=== PATIENT | male | born 1965 | race Two or more races ===

== ENCOUNTER 2018-11-19 16:44 | Emergency (ER) | payer SELFPAY ==
[~2018-11-19] VITALS: Ht 162.6 cm; Wt 81.6 kg
[2018-11-19 17:19] LABS: BILIRUBIN,URINE NEGATIVE (NEG); CLARITY,URINE CLEAR; COLOR,URINE YELLOW; NITRITE,URINE NEGATIVE (NEG); PH,URINE 6.5; PROTEIN,URINE NEGATIVE (NEG-TRACE); UROBILINOGEN,URINE 0.2 mg/dL (0.2 mg/dL)
[2018-11-19 17:26] LABS: BACTERIA,URINE 0 /HPF (0-FEW); SQUAMOUS EPITHELIAL CELL,UR OCC /LPF; WBC,URINE 0 /HPF (0-4)
[2018-11-19] MEDS ORDERED: IV NORMAL SALINE 1000ML BAG 1,000 ML IV SCH (17:32)
[2018-11-19] MEDS ORDERED: ONDANSETRON PF 4 MG/2 ML VIAL. IV ONE (17:45)
[2018-11-19] MEDS ORDERED: fentaNYL PF VIAL 100 MCG/2 ML VIAL IV ONE (17:45)
[2018-11-19 17:48] LABS: BASO % 0 % (0-3); EOS % 0 % (0-3); HEMATOCRIT 45.6 % (39.0-53.0); HEMOGLOBIN 15.5 g/dL (13.0-17.5); LYMPH # 1.1 x10^3/uL (1.0-4.8); LYMPH % 12 % (24-48); MEAN CORPUSCULAR HEMOGLOBIN 30 pg (25-35); MEAN CORPUSCULAR HGB CONC 34 g/dL (31-37); MEAN CORPUSCULAR VOLUME 87 fL (79-100); MONO # 0.3 x10^3/uL (0.0-1.1); MONO % 3 % (0-9); NEUT % 85 % (31-73); PLATELET COUNT 332 x10^3/uL (140-400); RED BLOOD COUNT 5.23 x10^6/uL (4.30-5.70); RED CELL DISTRIBUTION WIDTH 13.4 % (11.5-14.5); WHITE BLOOD COUNT 9.4 x10^3/uL (4.0-11.0)
--- NOTE | 2018-11-19 17:50 | PHYS DOC ---
Past Medical History Past Medical History: Kidney Stone (LANI BULLARD APRN) Past Surgical History: Other Additional Past Surgical Histo: renal stent (LANI BULLARD APRN) Alcohol Use: None Drug Use: None (LANI BULLARD APRN) Adult General Chief Complaint Chief Complaint: FLANK PAIN HPI HPI Patient is a 53 year old male who presents with 15 days ago began having left flank pain that wraps around to his left lower abdomen but sometimes radiates down into the testicle. Patient states for the last week off and on he's had ringing in his ears and head pain in the back of his head. Patient states that this morning he had some nausea but has not vomited. Patient rates pain a 4 out of 10 and states is sharp shooting that again this pain also does come and go in his abdomen and flank. Patient states for the last 6 months he has had some blurriness in the left eye and sees a black spot from time to time. Patient denies vomiting, fever, diarrhea, dysuria, seen blood in his urine or stool, constipation, numbness or tingling, syncope, dizziness chest pain, shortness of air. (LANI BULLARD APRN) Review of Systems Review of Systems Constitutional: Denies fever or chills [] Eyes: Denies change in visual acuity, redness, or eye pain [] HENT: Denies nasal congestion or sore throat [] Respiratory: Denies cough or shortness of breath [] Cardiovascular: No additional information not addressed in HPI [] GI: abdominal pain, nausea, denies vomiting, bloody stools or diarrhea [] : Left flank. Denies dysuria or hematuria [] Musculoskeletal: Denies back pain or joint pain [] Integument: Denies rash or skin lesions [] Neurologic: headache, denies focal weakness or sensory changes [] All other systems were reviewed and found to be within normal limits, except as documented in this note. (LANI BULLARD APRN) Current Medications Current Medications Current Medications Medications (Trade) Dose Ordered Sig/Janna Start Time Stop Time Status Last Admin Dose Admin Fentanyl Citrate (Fentanyl 2ml Vial) 50 mcg 1X ONCE 11/19/18 17:45 11/19/18 17:46 DC Ondansetron HCl (Zofran) 4 mg 1X ONCE 11/19/18 17:45 11/19/18 17:46 DC Sodium Chloride 1,000 ml @ 1,000 mls/hr Q1H 11/19/18 17:32 11/19/18 18:31 DC 11/19/18 17:47 1,000 MLS/HR (DEWAYNE GREER DO) Allergies Allergies Allergies Coded Allergies Type Severity Reaction Last Updated Verified No Known Drug Allergies 02/10/14 No (DEWAYNE GREER DO) Physical Exam Physical Exam Constitutional: Well developed, well nourished, no acute distress, non-toxic appearance. [] HENT: Normocephalic, atraumatic, bilateral external ears normal, oropharynx moist, no oral exudates, nose normal. [] Eyes: PERRLA, EOMI, conjunctiva normal, no discharge. [] Neck: Normal range of motion, no tenderness, supple, no stridor. [] Cardiovascular:Heart rate regular rhythm, no murmur [] Lungs & Thorax: Bilateral breath sounds clear to auscultation [] Abdomen: Bowel sounds normal, soft, left lower tenderness, no masses, no pulsatile masses. [] Skin: Warm, dry, no erythema, no rash. [] Back: No tenderness, left CVA tenderness. [] Extremities: No tenderness, no cyanosis, no clubbing, ROM intact, no edema. [] Neurologic: Alert and oriented X 3, normal motor function, normal sensory function, no focal deficits noted. [] Psychologic: Affect normal, judgement normal, mood normal. [] (LANI BULLARD APRN) Current Patient Data Vital Signs Vital Signs Date Time Temp Pulse Resp B/P (MAP) Pulse Ox O2 Delivery O2 Flow Rate FiO2 11/19/18 20:17 62 16 156/84 (108) 97 Room Air 11/19/18 16:50 98.2 98.2 (DEWAYNE GREER DO) Lab Values Laboratory Tests Test 11/19/18 16:56 11/19/18 17:39 Urine Collection Type Unknown Urine Color Yellow Urine Clarity Clear Urine pH 6.5 Urine Specific [place] 1.015 Urine Protein Negative mg/dL (NEG-TRACE) Urine Glucose (UA) Negative mg/dL (NEG) Urine Ketones (Stick) 15 mg/dL (NEG) Urine Blood Small (NEG) Urine Nitrite Negative (NEG) Urine Bilirubin Negative (NEG) Urine Urobilinogen Dipstick 0.2 mg/dL (0.2 mg/dL) Urine Leukocyte Esterase Negative (NEG) Urine RBC 11-20 /HPF (0-2) Urine WBC 0 /HPF (0-4) Urine Squamous Epithelial Cells Occ /LPF Urine Bacteria 0 /HPF (0-FEW) White Blood Count 9.4 x10^3/uL (4.0-11.0) Red Blood Count 5.23 x10^6/uL (4.30-5.70) Hemoglobin 15.5 g/dL (13.0-17.5) Hematocrit 45.6 % (39.0-53.0) Mean Corpuscular Volume 87 fL (79-100) Mean Corpuscular Hemoglobin 30 pg (25-35) Mean Corpuscular Hemoglobin Concent 34 g/dL (31-37) Red Cell Distribution Width 13.4 % (11.5-14.5) Platelet Count 332 x10^3/uL (140-400) Neutrophils (%) (Auto) 85 % (31-73) H Lymphocytes (%) (Auto) 12 % (24-48) L Monocytes (%) (Auto) 3 % (0-9) Eosinophils (%) (Auto) 0 % (0-3) Basophils (%) (Auto) 0 % (0-3) Neutrophils # (Auto) 8.0 x10^3uL (1.8-7.7) H Lymphocytes # (Auto) 1.1 x10^3/uL (1.0-4.8) Monocytes # (Auto) 0.3 x10^3/uL (0.0-1.1) Eosinophils # (Auto) 0.0 x10^3/uL (0.0-0.7) Basophils # (Auto) 0.0 x10^3/uL (0.0-0.2) Sodium Level 140 mmol/L (136-145) Potassium Level 3.9 mmol/L (3.5-5.1) Chloride Level 102 mmol/L (98-107) Carbon Dioxide Level 27 mmol/L (21-32) Anion Gap 11 (6-14) Blood Urea Nitrogen 13 mg/dL (8-26) Creatinine 0.8 mg/dL (0.7-1.3) Estimated GFR (Cockcroft-Gault) 100.7 BUN/Creatinine Ratio 16 (6-20) Glucose Level 112 mg/dL (70-99) H Calcium Level 8.6 mg/dL (8.5-10.1) Total Bilirubin 0.7 mg/dL (0.2-1.0) Aspartate Amino Transferase (AST) 36 U/L (15-37) Alanine Aminotransferase (ALT) 49 U/L (16-63) Alkaline Phosphatase 85 U/L (46-116) Troponin I Quantitative < 0.017 ng/mL (0.000-0.055) Total Protein 7.5 g/dL (6.4-8.2) Albumin 3.6 g/dL (3.4-5.0) Albumin/Globulin Ratio 0.9 (1.0-1.7) L Laboratory Tests 11/19/18 17:39 Laboratory Tests 11/19/18 17:39 (DEWAYNE GREER DO) EKG EKG [] (LANI BULLARD APRN) Radiology/Procedures Radiology/Procedures [] (LANI BULLARD APRN) Radiology/Procedures PROCEDURE: CT ABDOMEN PELVIS WO CONTRAST EXAM: CT Abdomen and Pelvis without IV contrast CLINICAL HISTORY: left flank and left lower abd pain, prior sent. COMPARISON: none TECHNIQUE: Helical CT of the abdomen and pelvis without intravenous contrast. Oral contrast was administered. Axial, coronal and sagittal reformatted images were generated. PQRS compliance statement - One or more of the following individualized dose reduction techniques were utilized for this study: 1. Automated exposure control 2. Adjustment of the mA and/or kV according to patient size 3. Use of iterative reconstruction technique FINDINGS: Lack of intravenous contrast limits evaluation of solid organs, vasculature, and lymph nodes. Lower chest: Minimal dependent opacities in the lower lobes likely scarring/atelectasis. Abdomen and Pelvis: No focal liver lesion. Spleen is unremarkable. Gallbladder is normal. No biliary ductal dilatation. Adrenal glands are normal. Pancreas is unremarkable. A 6 mm calculus is seen within the left distal ureteral calculus. This results in mild left hydroureter.. Fat infiltration seen about the left ureter. No definite renal lesion. No right renal tract calculus. Moderate colonic stool content is seen. Appendix is normal. No evidence for bowel obstruction. No abdominal or pelvic ascites. No abdominal or pelvic lymphadenopathy. Bones: Hip joint degenerative changes are seen. Degenerative changes of spine are seen, particularly at L5-S1 facet joints. IMPRESSION: 1. A 6 mm calculus is seen within the left distal ureter with mild left hydroureter. Electronically signed by: Hank Hastings MD (11/19/2018 7:03 PM) [facility] PROCEDURE: CT HEAD WO CONTRAST EXAM: CT Head without IV contrast CLINICAL HISTORY: Headache, vision changes COMPARISON: None. TECHNIQUE: Routine CT of the head without contrast. Soft tissues and bone windows were reviewed. PQRS compliance statement - One or more of the following individualized dose reduction techniques were utilized for this study: 1. Automated exposure control 2. Adjustment of the mA and/or kV according to patient size 3. Use of iterative reconstruction technique FINDINGS: There is no evidence of hemorrhage, mass or extra-axial fluid collection. Ortega-white differentiation is maintained with no evidence of edema. There is no mass effect or shift of the intracranial structures. The ventricles, basilar cisterns and cortical sulci are normal in size and configuration for the patients stated age. The cerebellum and brainstem are unremarkable. The calvarium demonstrates no evidence of fracture or focal lesion. There is normal aeration of the visualized paranasal sinuses and mastoid air cells. The visualized portions of the orbits are normal. IMPRESSION: No evidence for acute intracranial process Electronically signed by: Hank Hastings MD (11/19/2018 6:38 PM) [facility] (DEWAYNE GREER DO) Impressions: [facility] [address] [place] [address] IMAGING REPORT Signed PATIENT: LILIA CUNNINGHAM ACCOUNT: [id number] : 1965 LOCATION: ER AGE: 53 SEX: M EXAM STATUS: REG ER ORD. PHYSICIAN: LANI BULLARD APRN REASON: flank pain, abdominal pain PROCEDURE: CT ABDOMEN PELVIS WO CONTRAST EXAM: CT Abdomen and Pelvis without IV contrast CLINICAL HISTORY: left flank and left lower abd pain, prior sent. COMPARISON: none TECHNIQUE: Helical CT of the abdomen and pelvis without intravenous contrast. Oral contrast was administered. Axial, coronal and sagittal reformatted images were generated. PQRS compliance statement - One or more of the following individualized dose reduction techniques were utilized for this study: 1. Automated exposure control 2. Adjustment of the mA and/or kV according to patient size 3. Use of iterative reconstruction technique FINDINGS: Lack of intravenous contrast limits evaluation of solid organs, vasculature, and lymph nodes. Lower chest: Minimal dependent opacities in the lower lobes likely scarring/atelectasis. Abdomen and Pelvis: No focal liver lesion. Spleen is unremarkable. Gallbladder is normal. No biliary ductal dilatation. Adrenal glands are normal. Pancreas is unremarkable. A 6 mm calculus is seen within the left distal ureteral calculus. This results in mild left hydroureter.. Fat infiltration seen about the left ureter. No definite renal lesion. No right renal tract calculus. Moderate colonic stool content is seen. Appendix is normal. No evidence for bowel obstruction. No abdominal or pelvic ascites. No abdominal or pelvic lymphadenopathy. Bones: Hip joint degenerative changes are seen. Degenerative changes of spine are seen, particularly at L5-S1 facet joints. IMPRESSION: 1. A 6 mm calculus is seen within the left distal ureter with mild left hydroureter. Electronically signed by: Hank Hastings MD (11/19/2018 7:03 PM) [facility] DICTATED and SIGNED BY: HANK HASTINGS MD DATE: 11/19/18 1903 [facility] [address] [place] [address] IMAGING REPORT Signed PATIENT: LILIA CUNNINGHAM ACCOUNT: [id number] : 1965 LOCATION: ER AGE: 53 SEX: M EXAM STATUS: REG ER ORD. PHYSICIAN: LANI BULLARD APRN REASON: head pain with visual changes PROCEDURE: CT HEAD WO CONTRAST EXAM: CT Head without IV contrast CLINICAL HISTORY: Headache, vision changes COMPARISON: None. TECHNIQUE: Routine CT of the head without contrast. Soft tissues and bone windows were reviewed. PQRS compliance statement - One or more of the following individualized dose reduction techniques were utilized for this study: 1. Automated exposure control 2. Adjustment of the mA and/or kV according to patient size 3. Use of iterative reconstruction technique FINDINGS: There is no evidence of hemorrhage, mass or extra-axial fluid collection. Ortega-white differentiation is maintained with no evidence of edema. There is no mass effect or shift of the intracranial structures. The ventricles, basilar cisterns and cortical sulci are normal in size and configuration for the patients stated age. The cerebellum and brainstem are unremarkable. The calvarium demonstrates no evidence of fracture or focal lesion. There is normal aeration of the visualized paranasal sinuses and mastoid air cells. The visualized portions of the orbits are normal. IMPRESSION: No evidence for acute intracranial process Electronically signed by: Hank Hastings MD (11/19/2018 6:38 PM) [facility] DICTATED and SIGNED BY: HANK HASTINGS MD DATE: 11/19/18 1838 (DAKOTA BULLARDMelissa Mg APRN) Course & Med Decision Making Course & Med Decision Making Patient is a 53 year old male who presents with 15 days ago began having left flank pain that wraps around to his left lower abdomen but sometimes radiates down into the testicle. Patient states for the last week off and on he's had ringing in his ears and head pain in the back of his head. Patient states that this morning he had some nausea but has not vomited. Patient rates pain a 4 out of 10 and states is sharp shooting that again this pain also does come and go in his abdomen and flank. Patient states for the last 6 months he has had some blurriness in the left eye and sees a black spot from time to time. Patient denies vomiting, fever, diarrhea, dysuria, seen blood in his urine or stool, constipation, numbness or tingling, syncope, dizziness chest pain, shortness of air. Alert and oriented. Speaks in full clear sentences. No extremity edema. Lungs are clear to auscultation all lobes. No reproducible chest pain with palpation. Abdomen is soft and tender to the left lower quadrant. No testicular swelling or tenderness. Left CVA tenderness. PERRLA. Neurologically intact. Moves all extremities and is equal strength in bandage maker. Ambulatory with a steady gait. Patient states he does not have any problems urinating. Head CT shows no acute findings. CT abdomen and pelvis shows 1. A 6 mm calculus is seen within the left distal ureter with mild left hydroureter. Blood work is unremarkable. Urinalysis shows no infection, only blood. Patient will be given pain medication, nausea medication, Flomax and sent home and follow-up with urology as soon as possible. Patient has continued to refuse pain medication. Patient is able to urinate and there are no signs of infection and urinalysis. Patient is told to return if he begins having trouble urinating or pain becomes too great. (LANI BULLARD APRN) Dragon Disclaimer Dragon Disclaimer This electronic medical record was generated, in whole or in part, using a voice recognition dictation system. (LANI BULLARD APRN) Departure Departure Impression: Primary Impression: Kidney stone Disposition: HOME, SELF-CARE Condition: STABLE Referrals: NO PCP (PCP) COREY PAINTER MD Patient Instructions: Kidney Stones Additional Instructions: Call urology in the morning for an appointment. Drink lots of water. Medication as prescribed. Return to the hospital if he began having trouble urinating or pain is increasing and pain medication not helping. Scripts Ondansetron (ONDANSETRON ODT) 4 Mg Tab.rapdis 1 TAB PO PRN Q6-8HRS, #20 TAB Prov: LANI BULLARD APRN 11/19/18 Hydrocodone/Apap 5-325 (NORCO 5-325 TABLET) 1 Each Tablet 1 TAB PO PRN Q6HRS PRN for PAIN, #10 TAB 0 Refills Prov: LANI BULLARD APRN 11/19/18 Tamsulosin Hcl (FLOMAX) 0.4 Mg Cap.er.24h 1 CAP PO DAILY, #30 CAP 11 Refills Prov: LANI BULLARD APRN 11/19/18 Attending Signature Attending Signature I have reviewed the PA/MULTIFOCAL BUTTON GRINDER's note and plan of care. I was available for consultation as needed at all times during the patient's visit in the emergency department. I agree with the clinical impression, plan and disposition. (DEWAYNE GREER DO) LANI BULLARD APRN Nov 19, 2018 17:50 DEWAYNE GREER DO Nov 23, 2018 19:51
[2018-11-19 17:56] LABS: CALCIUM 8.6 mg/dL (8.5-10.1); CREATININE 0.8 mg/dL (0.7-1.3); GFR 100.7; POTASSIUM 3.9 mmol/L (3.5-5.1)
[2018-11-19 18:01] LABS: ALBUMIN 3.6 g/dL (3.4-5.0); ALBUMIN/GLOBULIN RATIO 0.9 (1.0-1.7); TOTAL BILIRUBIN 0.7 mg/dL (0.2-1.0); TOTAL PROTEIN 7.5 g/dL (6.4-8.2)
--- NOTE | 2018-11-19 18:41 | RAD ---
EXAM: CT Head without IV contrast CLINICAL HISTORY: Headache, vision changes COMPARISON: None. TECHNIQUE: Routine CT of the head without contrast. Soft tissues and bone windows were reviewed. PQRS compliance statement - One or more of the following individualized dose reduction techniques were utilized for this study: 1. Automated exposure control 2. Adjustment of the mA and/or kV according to patient size 3. Use of iterative reconstruction technique FINDINGS: There is no evidence of hemorrhage, mass or extra-axial fluid collection. Ortega-white differentiation is maintained with no evidence of edema. There is no mass effect or shift of the intracranial structures. The ventricles, basilar cisterns and cortical sulci are normal in size and configuration for the patients stated age. The cerebellum and brainstem are unremarkable. The calvarium demonstrates no evidence of fracture or focal lesion. There is normal aeration of the visualized paranasal sinuses and mastoid air cells. The visualized portions of the orbits are normal. IMPRESSION: No evidence for acute intracranial process Electronically signed by: Hank Rubin MD (11/19/2018 6:38 PM) [facility]
--- NOTE | 2018-11-19 19:06 | RAD ---
EXAM: CT Abdomen and Pelvis without IV contrast CLINICAL HISTORY: left flank and left lower abd pain, prior sent. COMPARISON: none TECHNIQUE: Helical CT of the abdomen and pelvis without intravenous contrast. Oral contrast was administered. Axial, coronal and sagittal reformatted images were generated. PQRS compliance statement - One or more of the following individualized dose reduction techniques were utilized for this study: 1. Automated exposure control 2. Adjustment of the mA and/or kV according to patient size 3. Use of iterative reconstruction technique FINDINGS: Lack of intravenous contrast limits evaluation of solid organs, vasculature, and lymph nodes. Lower chest: Minimal dependent opacities in the lower lobes likely scarring/atelectasis. Abdomen and Pelvis: No focal liver lesion. Spleen is unremarkable. Gallbladder is normal. No biliary ductal dilatation. Adrenal glands are normal. Pancreas is unremarkable. A 6 mm calculus is seen within the left distal ureteral calculus. This results in mild left hydroureter.. Fat infiltration seen about the left ureter. No definite renal lesion. No right renal tract calculus. Moderate colonic stool content is seen. Appendix is normal. No evidence for bowel obstruction. No abdominal or pelvic ascites. No abdominal or pelvic lymphadenopathy. Bones: Hip joint degenerative changes are seen. Degenerative changes of spine are seen, particularly at L5-S1 facet joints. IMPRESSION: 1. A 6 mm calculus is seen within the left distal ureter with mild left hydroureter. Electronically signed by: Hank Rubin MD (11/19/2018 7:03 PM) [facility]
[2018-11-19 20:17] VITALS: BP 156/84
[2018-11-19] MEDS ORDERED: ONDA4TAB12 PO (20:27)
[2018-11-19] MEDS ORDERED: HYDR-3164 PO (20:27)
[2018-11-19] MEDS ORDERED: TAMS0.4C97 PO (20:27)
== END 2018-11-19 20:42 | disposition home or self-care (01) ==
LOC: ER 16:44
DX: N20.0 Calculus of kidney (principal); R10.9 Unspecified abdominal pain; R51 Headache; R11.0 Nausea; H92.03 Otalgia, bilateral
CPT/HCPCS: 36415; 70450; 74176; 80053; 81001; 84484; 85025; 99284; J7030

== ENCOUNTER 2019-04-07 09:26 | Emergency (ER) | payer SELFPAY ==
[~2019-04-07] VITALS: Ht 167.6 cm; Wt 81.6 kg
[~2019-04-07 09:26] MED LIST: HYDR-3164 PO; ONDA4TAB12 PO; TAMS0.4C97 PO
[2019-04-07] MEDS ORDERED: IV NORMAL SALINE 1000ML BAG 1,000 ML IV SCH (10:07)
--- NOTE | 2019-04-07 10:13 | PHYS DOC ---
Past Medical History Past Medical History: Kidney Stone Past Surgical History: Other Additional Past Surgical Histo: renal stent Smoking: Cigarettes (The patient is a nonsmoker.) Alcohol Use: None Drug Use: None Adult General Chief Complaint Chief Complaint: FLANK PAIN HPI HPI Patient is a 53-year-old male who presents to the emergency department for evaluation of left flank pain, radiating around towards his left anterior/lower abdomen, which began yesterday. He has had some discomfort with urination, but has not had any urinary frequency, or hematuria. He has not had any nausea, vomiting, dizziness or lightheadedness. He has not had any fevers or chills. He has had similar symptoms in the past with a prior episode of a kidney stone. There are no alleviating or exacerbating factors to his symptoms. He denies any testicular pain. Patient is Telugu-speaking, and history was obtained via language line Review of Systems Review of Systems Constitutional: Denies fever or chills [] Eyes: Denies change in visual acuity, redness, or eye pain [] HENT: Denies nasal congestion or sore throat [] Respiratory: Denies cough or shortness of breath [] Cardiovascular: The patient denies any shortness of breath, chest pain, palpitations, or orthopnea [] GI: Denies abdominal pain, nausea, vomiting, bloody stools or diarrhea [] : Denies urinary frequency or hematuria [] Musculoskeletal: Denies back pain or joint pain, except the left flank pain. [] Integument: Denies rash or skin lesions [] Neurologic: Denies headache, focal weakness or sensory changes [] Endocrine: Denies polyuria or polydipsia [] All other systems were reviewed and found to be within normal limits, except as documented in this note. Current Medications Current Medications Current Medications Medications (Trade) Dose Ordered Sig/Janna Start Time Stop Time Status Last Admin Dose Admin Ceftriaxone Sodium (Rocephin) 1 gm 1X ONCE 04/07/19 11:30 04/07/19 11:31 DC Ketorolac Tromethamine (Toradol 30mg Vial) 30 mg 1X ONCE 04/07/19 10:15 04/07/19 10:16 DC 04/07/19 10:24 30 MG Sodium Chloride 1,000 ml @ 1,000 mls/hr Q1H 04/07/19 10:07 04/07/19 11:06 DC 04/07/19 10:24 1,000 MLS/HR Allergies Allergies Allergies Coded Allergies Type Severity Reaction Last Updated Verified morphine Allergy Severe Rash 04/07/19 Yes Physical Exam Physical Exam PHYSICAL EXAM: CONSTITUTIONAL: Well developed, well nourished HEAD: normocephalic, atraumatic EENT: PERRL, EOMI. Conjunctivae normal color, sclerae non-icteric; moist mucous membranes. NECK: Supple, non-tender; no meningismus. LUNGS: Lungs CTA, breathing even and unlabored. Normal air movement. HEART: Regular rate and rhythm, no murmur CHEST: No deformity; non-tender ABDOMEN: The abdomen is soft, there is mild tenderness to palpation in the left mid and lower abdomen, without rebound or guarding, the remainder the abdomen is soft and and non-tender, no masses or bruits. EXTREM: Normal ROM; no deformity, no calf tenderness. Normal pulses palpable in all extremities. There is no pedal edema. SKIN: No rash; no diaphoresis NEURO: Alert; normal speech and cognition; CN's grossly intact; strength grossly intact without focal deficit. BACK: There is mild left-sided CVA TTP. Current Patient Data Vital Signs Vital Signs Date Time Temp Pulse Resp B/P (MAP) Pulse Ox O2 Delivery O2 Flow Rate FiO2 04/07/19 11:35 48 18 120/74 (89) 94 Room Air 04/07/19 10:01 97.7 97.7 Lab Values Laboratory Tests Test 04/07/19 09:58 04/07/19 10:14 Urine Collection Type Void Urine Color Yellow Urine Clarity Clear Urine pH 6.0 Urine Specific Lenore 1.025 Urine Protein Negative mg/dL (NEG-TRACE) Urine Glucose (UA) Negative mg/dL (NEG) Urine Ketones (Stick) Negative mg/dL (NEG) Urine Blood Negative (NEG) Urine Nitrite Negative (NEG) Urine Bilirubin Negative (NEG) Urine Urobilinogen Dipstick 0.2 mg/dL (0.2 mg/dL) Urine Leukocyte Esterase Negative (NEG) Urine RBC 0 /HPF (0-2) Urine WBC 5-10 /HPF (0-4) Urine Squamous Epithelial Cells Few /LPF Urine Bacteria Few /HPF (0-FEW) White Blood Count 7.9 x10^3/uL (4.0-11.0) Red Blood Count 4.93 x10^6/uL (4.30-5.70) Hemoglobin 14.7 g/dL (13.0-17.5) Hematocrit 43.2 % (39.0-53.0) Mean Corpuscular Volume 88 fL (79-100) Mean Corpuscular Hemoglobin 30 pg (25-35) Mean Corpuscular Hemoglobin Concent 34 g/dL (31-37) Red Cell Distribution Width 13.9 % (11.5-14.5) Platelet Count 288 x10^3/uL (140-400) Neutrophils (%) (Auto) 80 % (31-73) H Lymphocytes (%) (Auto) 13 % (24-48) L Monocytes (%) (Auto) 6 % (0-9) Eosinophils (%) (Auto) 1 % (0-3) Basophils (%) (Auto) 0 % (0-3) Neutrophils # (Auto) 6.4 x10^3/uL (1.8-7.7) Lymphocytes # (Auto) 1.0 x10^3/uL (1.0-4.8) Monocytes # (Auto) 0.5 x10^3/uL (0.0-1.1) Eosinophils # (Auto) 0.1 x10^3/uL (0.0-0.7) Basophils # (Auto) 0.0 x10^3/uL (0.0-0.2) Sodium Level 141 mmol/L (136-145) Potassium Level 4.0 mmol/L (3.5-5.1) Chloride Level 106 mmol/L (98-107) Carbon Dioxide Level 27 mmol/L (21-32) Anion Gap 8 (6-14) Blood Urea Nitrogen 16 mg/dL (8-26) Creatinine 0.9 mg/dL (0.7-1.3) Estimated GFR (Cockcroft-Gault) 87.9 BUN/Creatinine Ratio 18 (6-20) Glucose Level 130 mg/dL (70-99) H Calcium Level 8.7 mg/dL (8.5-10.1) Total Bilirubin 0.6 mg/dL (0.2-1.0) Aspartate Amino Transferase (AST) 27 U/L (15-37) Alanine Aminotransferase (ALT) 48 U/L (16-63) Alkaline Phosphatase 81 U/L (46-116) Total Protein 7.2 g/dL (6.4-8.2) Albumin 3.6 g/dL (3.4-5.0) Albumin/Globulin Ratio 1.0 (1.0-1.7) Lipase 447 U/L (73-393) H Laboratory Tests 04/07/19 10:14 Laboratory Tests 04/07/19 10:14 EKG EKG [] Radiology/Procedures Radiology/Procedures [PROCEDURE: CT ABDOMEN PELVIS WO CONTRAST EXAM: CT Abdomen and Pelvis without IV contrast CLINICAL HISTORY: Left flank pain, history of kidney stones. COMPARISON: 11/19/2018 TECHNIQUE: Helical CT of the abdomen and pelvis without intravenous contrast. Axial, coronal and sagittal reformatted images were generated. PQRS compliance statement - One or more of the following individualized dose reduction techniques were utilized for this study: 1. Automated exposure control 2. Adjustment of the mA and/or kV according to patient size 3. Use of iterative reconstruction technique FINDINGS: Lack of intravenous contrast limits evaluation of solid organs, vasculature, and lymph nodes. Lower chest: Vague groundglass opacities are seen in the lower lobes possibly atelectasis. Abdomen and Pelvis: Hepatic hypoattenuation, hepatic steatosis. No definite liver lesion is seen. Focal fatty sparing in the gallbladder fossa. Gallbladder is normal. No biliary ductal dilatation. Spleen is unremarkable. Adrenal glands are normal. Pancreas is unremarkable. A 7 mm calculus is seen within the distal left ureter with resultant mild left hydronephrosis and hydroureter. Mild periureteral fat infiltration is seen. Bladder is unremarkable. No right renal or right ureteral calculus. No definite renal lesion. Appendix is normal. No small or large bowel dilatation. No abdominal or pelvic lymphadenopathy. No abdominal or pelvic ascites. Bones: Multilevel degenerative changes of the spine are seen. IMPRESSION: 1. 7 mm calculus within the distal left ureter results in mild left hydronephrosis and hydroureter. 2. Mild perinephric and periureteral fat infiltration likely from calculus described in subpoint 1, however superimposed infection would result in similar appearance. ] Course & Med Decision Making Course & Med Decision Making Pertinent Labs and Imaging studies reviewed. (See chart for details) []11:50 AM: The patient's condition remains stable. His pain has improved after Toradol. I did review his chart he was in the emergency department about 5 months ago, for another kidney stone on the left, 6 mm. It is unknown if this is the same stone that has not passed a new stone. I did discuss importance of close outpatient urology follow-up, something the patient has not done until this point, and return precautions. Follow-up discussion was discussed with the patient via language line as well. Dragon Disclaimer Dragon Disclaimer This electronic medical record was generated, in whole or in part, using a voice recognition dictation system. Departure Departure Impression: Primary Impression: Kidney stone Disposition: 01 HOME, SELF-CARE Condition: STABLE Referrals: TALA GUTIERREZ MD Patient Instructions: Diet for Kidney Stones, Kidney Stones Additional Instructions: Use the prescribed pain medication as needed for pain not controlled by ibuprofen.The prescribed medication may cause drowsiness. Use caution while taking. Strain your urine. If you find a kidney stone, bring it to your urology follow- up appointment, as this may help the urologist to determine what is causing the stone what you might be able to do to prevent this from happening in the future. Scripts [Ketorolac] No Conflict Check 10 MG PO TID PRN for PAIN, #20 TAB Prov: NAEL MARIO MD 04/07/19 Tamsulosin Hcl (FLOMAX) 0.4 Mg Cap.er.24h 1 CAP PO DAILY, #30 CAP 0 Refills Prov: NAEL MARIO MD 04/07/19 Sulfamethoxazole/Trimethoprim (BACTRIM DS TABLET) 1 Each Tablet 1 TAB PO BID, #14 TAB Prov: NAEL MARIO MD 04/07/19 NAEL MARIO MD Apr 07, 2019 10:13
[2019-04-07] MEDS ORDERED: KETOROLAC 30 MG/ML VIAL. IV ONE (10:15)
[2019-04-07 10:23] LABS: BASO % 0 % (0-3); EOS # 0.1 x10^3/uL (0.0-0.7); EOS % 1 % (0-3); HEMATOCRIT 43.2 % (39.0-53.0); HEMOGLOBIN 14.7 g/dL (13.0-17.5); LYMPH % 13 % (24-48); MEAN CORPUSCULAR HEMOGLOBIN 30 pg (25-35); MEAN CORPUSCULAR HGB CONC 34 g/dL (31-37); MEAN CORPUSCULAR VOLUME 88 fL (79-100); MONO # 0.5 x10^3/uL (0.0-1.1); MONO % 6 % (0-9); NEUT # 6.4 x10^3/uL (1.8-7.7); NEUT % 80 % (31-73); PLATELET COUNT 288 x10^3/uL (140-400); RED BLOOD COUNT 4.93 x10^6/uL (4.30-5.70); RED CELL DISTRIBUTION WIDTH 13.9 % (11.5-14.5); WHITE BLOOD COUNT 7.9 x10^3/uL (4.0-11.0)
[2019-04-07 10:25] LABS: BILIRUBIN,URINE NEGATIVE (NEG); CLARITY,URINE CLEAR; COLOR,URINE YELLOW; NITRITE,URINE NEGATIVE (NEG); PROTEIN,URINE NEGATIVE (NEG-TRACE); UROBILINOGEN,URINE 0.2 mg/dL (0.2 mg/dL)
[2019-04-07 10:39] LABS: BACTERIA,URINE FEW /HPF (0-FEW); RBC,URINE 0 /HPF (0-2); SQUAMOUS EPITHELIAL CELL,UR FEW /LPF
[2019-04-07 10:41] LABS: CALCIUM 8.7 mg/dL (8.5-10.1); CREATININE 0.9 mg/dL (0.7-1.3); GFR 87.9
[2019-04-07 10:46] LABS: ALBUMIN 3.6 g/dL (3.4-5.0); TOTAL BILIRUBIN 0.6 mg/dL (0.2-1.0); TOTAL PROTEIN 7.2 g/dL (6.4-8.2)
--- NOTE | 2019-04-07 10:57 | RAD ---
EXAM: CT Abdomen and Pelvis without IV contrast CLINICAL HISTORY: Left flank pain, history of kidney stones. COMPARISON: 11/19/2018 TECHNIQUE: Helical CT of the abdomen and pelvis without intravenous contrast. Axial, coronal and sagittal reformatted images were generated. PQRS compliance statement - One or more of the following individualized dose reduction techniques were utilized for this study: 1. Automated exposure control 2. Adjustment of the mA and/or kV according to patient size 3. Use of iterative reconstruction technique FINDINGS: Lack of intravenous contrast limits evaluation of solid organs, vasculature, and lymph nodes. Lower chest: Vague groundglass opacities are seen in the lower lobes possibly atelectasis. Abdomen and Pelvis: Hepatic hypoattenuation, hepatic steatosis. No definite liver lesion is seen. Focal fatty sparing in the gallbladder fossa. Gallbladder is normal. No biliary ductal dilatation. Spleen is unremarkable. Adrenal glands are normal. Pancreas is unremarkable. A 7 mm calculus is seen within the distal left ureter with resultant mild left hydronephrosis and hydroureter. Mild periureteral fat infiltration is seen. Bladder is unremarkable. No right renal or right ureteral calculus. No definite renal lesion. Appendix is normal. No small or large bowel dilatation. No abdominal or pelvic lymphadenopathy. No abdominal or pelvic ascites. Bones: Multilevel degenerative changes of the spine are seen. IMPRESSION: 1. 7 mm calculus within the distal left ureter results in mild left hydronephrosis and hydroureter. 2. Mild perinephric and periureteral fat infiltration likely from calculus described in subpoint 1, however superimposed infection would result in similar appearance. Electronically signed by: Hank Rubin MD (04/07/2019 10:54 AM) [facility]
[2019-04-07] MEDS ORDERED: cefTRIAXone IV Push 1 GM VIAL. IVP ONE (11:30)
[2019-04-07 11:35] VITALS: BP 120/74
[2019-04-07] MEDS ORDERED: Ketorolac PO (11:52)
[2019-04-07] MEDS ORDERED: SULF1TAB24 PO (11:52)
[2019-04-07] MEDS ORDERED: TAMS0.4C97 PO (11:52)
== END 2019-04-07 12:08 | disposition home or self-care (01) ==
LOC: ER 09:26
DX: N13.2 Hydronephrosis with renal and ureteral calculous obstruction (principal); Z88.5 Allergy status to narcotic agent
CPT/HCPCS: 36415; 74176; 80053; 81001; 83690; 85025; 87086; 96374; 96375; 99285; J0696; J1885; J7030